=== PATIENT | female | born 1965 | race Caucasian/White ===

== ENCOUNTER → 2024-06-29 10:56 | Outpatient (BNVA) | payer OTHER, SELFPAY | PROVIDERS: PCP Family Medicine; Visit Provider Physician Assistant | DX: S51.851A Open bite of right forearm, initial encounter (principal); S50.811A Abrasion of right forearm, initial encounter; W55.01XA Bitten by cat, initial encounter | CPT/HCPCS: 99204 ==

== ENCOUNTER → 2024-07-01 08:06 | Outpatient (BNVA) | payer OTHER, SELFPAY | PROVIDERS: PCP Family Medicine; Visit Provider Physician Assistant Medical | DX: S51.851A Open bite of right forearm, initial encounter (principal); S50.811A Abrasion of right forearm, initial encounter; W55.01XA Bitten by cat, initial encounter | CPT/HCPCS: 99213 ==